=== PATIENT | male | born 1945 | race Caucasian/White ===

== ENCOUNTER 2018-05-30 10:51 | Emergency (ER) | payer MEDICARE, SELFPAY ==
[2018-05-30 10:51] VITALS: BP 132/63; PULSE 65; RESP 18; TEMP 36.3; O2SAT 99; BMI 25.0
--- NOTE | 2018-05-30 11:05 | RAD_ITS ---
STUDY: X-RAY - LEFT RADIUS AND ULNA REASON FOR EXAM: Male, 73 years old. Left arm injury. TECHNIQUE: 2 view(s) of the forearm. COMPARISON: None. FINDINGS: There is soft tissue swelling of the distal forearm. There are vague densities in soft tissues adjacent to the distal radius which could represent foreign bodies. There is no demonstrated definite acute fracture of the distal radius. Normal visualized ulna. RAD/Forearm 2 Views IMPRESSION: Soft tissue swelling of the distal forearm with probable more foreign bodies. No demonstrated definite acute fracture. If symptoms persist, follow-up exam is recommended. Electronically Signed: Arthur Mendoza MD at 12:17 EDT Tel , Service support ,
--- NOTE | 2018-05-30 11:13 | ED.VISSUMM ---
- ER Visit Summary Date of Service: 05/30/18 Chief Complaint: Pain proximal left forearm status post fall History of Present Illness: The patient is a 73 M right hand dominant male who presents because of pain that he localizes to the proximal left forearm ulnar side secondary to fall yesterday morning. He is residing in a house across from his children and grand children. He states they are housesitting. He is with his . He states he slipped yesterday morning and landed on his left forearm. Struck wooden floor. Upon questioning he admits to chills yesterday. He states he could not get warm. He was unaware that he had a rash. He denies any paresthesia, anesthesia or motor weakness. His left upper extremity is not normally swollen. 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 He is on no anticoagulant. He apparently does bruise easily. Physical Examination: Vital signs are noted and blood pressure slightly elevated 132/63. HEENT is unremarkable no evidence of trauma. Trachea midline. No cervical spine tenderness. Heart is regular without murmur, gallop or rub. Lungs clear to auscultation. There is abrasion noted left forearm. There is evidence of cellulitis volar proximal half of the left forearm. The rash is erythematous, warm. There is no induration or lymphangitis. There is no epitrochlear lymphadenopathy. Patient has significant lymphedema of the left hand. He was informed if he is on able to remove his wedding band the wedding band will need to be removed with cautery. Median, radial and ulnar function intact. Sensation in his fingers and thumb are normal. Extensor and flexor mechanism intact. Palpable thrill noted radial distal left forearm. Test Results: White count is 10,000 with 86 segs no bands. H&H 9.3 and 20.7, which according to patient's baseline. Electro panels marked for creatinine 2.5 which is lower than baseline. Two-view x-ray of the left forearm was obtained with no evidence of fracture, foreign body, subluxation or dislocation. There is soft tissue swelling noted. Film was interpreted by me. Emergency Department Course and Treatment: Will obtain x-ray because of his pain to palpation over the proximal left ulna. Because of reported chills and clinically patient has cellulitis CBC and BMP were obtained. Patient reports baseline creatinine 2.7. Treatment Plan: 50 mg/kg of vancomycin IV piggyback. Follow[place]up in the ER [place] 2 [place] Disposition: Discharged to home with prescription for doxycycline and follow-up in the ER in 2 days since he has no local physician and is a kidney recipient on immunosuppressive meds. Impression: 1. Cellulitis left forearm 2. Contusion left forearm secondary to fall initial encounter 3. Kidney recipient on immunosuppressive meds 4. History of hypertension 5. History hypercholesterolemia This note was generated with [employer] dictation software. It may contain incorrect words, spelling, and punctuation that were not noted in review of the chart prior to signing ED Disposition - Plan for ED Patient: Disposition: Home or Assisted Living Chief Complaint: Upper Extremity Injury Instructions: ED Infec Skin Cellulitis, ED Contusion Upper Ext Prescriptions: Doxycycline Monohydrate 100 mg PO BID #20 cap Referrals: [facility],Out of [NON-STAFF] - Additional Instructions: 1. Return to the emergency department and 48 hours for reevaluation 2. Take antibiotic until gone 3. If you develop a temperature greater than 100, shaking chills or the rash extends 1-2 inches past demarcated areas on your left upper extremity return to the emergency department
[2018-05-30 11:27] LABS: Absolute Lymphocyte Count 0.83 X10^3/ul (0.83-4.51); Absolute Neutrophil Count 8.6 X10^3/uL (2.0-7.7); Basophil# 0.01 X10^3/uL; Basophil% 0.1 % (0-1); Hematocrit 28.9 % (40-54); Hemoglobin 9.3 g/dl (13.0-16.5); Lymphocyte # 0.83 X10^3/ul (4.0); Lymphocyte % 8.3 % (19-41); Mean Corp Hgb Conc 32.2 g/gl (32-36); Mean Corpuscular Hgb 28.3 pg (27.0-32.0); Mean Corpuscular Volume 87.8 fL (80-94); Mean Platelet Vol. 9.1 fl (6.2-12.0); Monocyte# 0.53 X10^3/uL; Monocyte% 5.3 % (0-10); Neutrophil # 8.56 X10^3/uL (2.7-7.7); Platelet Count 220 K/mm3 (150-450); RBC Distribution Width CV 17.6 % (11.6-14.6); RBC Distribution Width SD 54.8 fl (35.1-43.9); Red Blood Count 3.29 M/mm3 (4.6-6.2)
[2018-05-30 11:28] LABS: POSITIVE COUNT NO; POSITIVE DIFFERENTIAL NO; POSITIVE MORPHOLOGY NO
[2018-05-30 11:38] LABS: Anion Gap 9 (5-15); BUN 54 mg/dL (7-18); BUN/Creat Ratio 21.6 RATIO (10-20); Chloride 112 mmol/L (98-107); EST Glomerular Filtration Rate 27 mL/min (>60); Est Glom Filt Rate - Afr Amer 33 mL/min (>60); Estimated Creatinine Clearance 24.24 ml/min; Glucose 111 mg/dL (74-106); Potassium 4.3 mmol/L (3.5-5.1); Sodium Level 142 mmol/L (136-145)
[2018-05-30] MEDS: Vancomycin IV 1,000 MG/200 ML BAG 200 MG IV (13:31)
[2018-05-30] MEDS: HYDROcodone Bitartrate/Apap 5/325 Tablet PO (13:54)
[2018-05-30 14:45] VITALS: BP 146/67; PULSE 76; RESP 16; O2SAT 97
== END 2018-05-30 14:44 | disposition home or self-care (01) ==
PROVIDERS: Emergency Provider Emergency Medicine
DX: L03.114 Cellulitis of left upper limb (principal); S50.12XA Contusion of left forearm, initial encounter; W01.10XA Fall on same level from slipping, tripping and stumbling with subsequent striking against unspecified object, initial encounter; Y93.9 Activity, unspecified; Y92.9 Unspecified place or not applicable; Y99.9 Unspecified external cause status; I12.0 Hypertensive chronic kidney disease with stage 5 chronic kidney disease or end stage renal disease; N18.6 End stage renal disease; E78.00 Pure hypercholesterolemia, unspecified; Z94.0 Kidney transplant status; Z79.52 Long term (current) use of systemic steroids; Z79.899 Other long term (current) drug therapy
CPT/HCPCS: 73090; 80048; 85025; 96365; 99282; A4216

== ENCOUNTER 2018-05-31 10:27 | Emergency (ER) | payer MEDICARE, SELFPAY ==
[2018-05-31 10:27] VITALS: BP 152/67; PULSE 70; RESP 18; TEMP 36.7; O2SAT 100; BMI 26.1
[2018-05-31 11:28] LABS: Absolute Lymphocyte Count 0.53 X10^3/ul (0.83-4.51); Absolute Neutrophil Count 4.6 X10^3/uL (2.0-7.7); Eosinophil# 0.03 X10^3/uL; Eosinophils% 0.5 % (0-5); Hematocrit 28.6 % (40-54); Lymphocyte # 0.53 X10^3/ul (4.0); Lymphocyte % 9.5 % (19-41); Mean Corp Hgb Conc 31.5 g/gl (32-36); Mean Corpuscular Hgb 27.4 pg (27.0-32.0); Mean Corpuscular Volume 86.9 fL (80-94); Mean Platelet Vol. 9.2 fl (6.2-12.0); Monocyte# 0.35 X10^3/uL; Monocyte% 6.3 % (0-10); Neutrophil # 4.64 X10^3/uL (2.7-7.7); Neutrophil % 83.7 % (47-70); Platelet Count 180 K/mm3 (150-450); RBC Distribution Width CV 17.9 % (11.6-14.6); RBC Distribution Width SD 56.7 fl (35.1-43.9); Red Blood Count 3.29 M/mm3 (4.6-6.2); White Blood Count 5.6 K/mm3 (4.4-11.0)
[2018-05-31 11:31] LABS: Differential Indicated SCAN CRITERIA MET; POSITIVE COUNT NO; POSITIVE DIFFERENTIAL YES; POSITIVE MORPHOLOGY NO
--- NOTE | 2018-05-31 11:48 | ED.DCSUM_ITS ---
- ER Visit Summary Date of Service: 05/31/18 Chief Complaint: Erythema extended 4-5 cm past proximal outlined area History of Present Illness: The patient is a 73 M who was seen yesterday by me for cellulitis of the left forearm/left upper extremity. He was treated with vancomycin. He did get his per prescription for doxycycline filled. He did take a dose today. is concerned because the erythema has expanded past the outlined margins. He denies fever, chills night sweats. He has no other complaints of note and importance he is a renal recipient on immunosuppressive meds. Physical Examination: There is slight erythema noted past the outlined area. The erythema within the confines of the outlined area has improved markedly. There is a faint orange color. Yesterday the area was erythematous warm with questionable induration. Today there is no warmth or erythema. There is no epitrochlear extra lymphadenopathy. Heart is regular. There is no murmur, gallop or rub. Lungs are clear to auscultation. Test Results: CBC was obtained and is normal at 5.6. He does have anemia which is chronic. Emergency Department Course and Treatment: Since patient is on immune suppressive meds will obtain a CBC to determine if he has gotten worse. Clinically in my opinion he has gotten better. Treatment Plan: Continue outpatient therapy Disposition: Discharge to home Impression: Cellulitis left upper extremity reevaluation with improvement This note was generated with [employer] dictation software. It may contain incorrect words, spelling, and punctuation that were not noted in review of the chart prior to signing ED Disposition - Plan for ED Patient: Disposition: Home or Assisted Living Chief Complaint: Cellulitis Instructions: Discharge Instructions for Cellulitis Referrals: Care Physician,No Primary [Primary Care Provider] -
[2018-05-31 12:00] VITALS: BP 146/94; PULSE 70; RESP 16; O2SAT 98
== END 2018-05-31 12:00 | disposition home or self-care (01) ==
PROVIDERS: Emergency Provider Emergency Medicine
DX: L03.114 Cellulitis of left upper limb (principal); I12.0 Hypertensive chronic kidney disease with stage 5 chronic kidney disease or end stage renal disease; N18.6 End stage renal disease; Z99.2 Dependence on renal dialysis; D64.9 Anemia, unspecified; Z79.52 Long term (current) use of systemic steroids; Z79.899 Other long term (current) drug therapy
CPT/HCPCS: 85025; 99282